=== PATIENT | female | born 1995 | race Two or more races ===

== ENCOUNTER 2021-07-23 12:40 | Emergency (ER) | payer OTHER ==
[~2021-07-23] VITALS: Ht 154.9 cm; Wt 71.2 kg
[2021-07-23] MEDS ORDERED: METFORMIN HCL1000 MG (14:33)
== END 2021-07-23 17:31 | disposition home or self-care (01) ==
LOC: ER 12:40 → EDBD 13:31 → ER 17:31
DX: B37.3 Candidiasis of vulva and vagina (principal); Z88.2 Allergy status to sulfonamides; N39.0 Urinary tract infection, site not specified

== ENCOUNTER 2022-01-20 13:29 | Emergency (ER) | payer OTHER ==
[~2022-01-20] VITALS: Ht 154.9 cm; Wt 75.3 kg
[~2022-01-20 13:29] MED LIST: METFORMIN HCL1000 MG
[2022-01-20] MEDS ORDERED: PANTOPRAZOLE SO40 MG PO (13:48)
[2022-01-20] MEDS ORDERED: MUPIROCIN22 GM TOP (15:48)
== END 2022-01-20 16:06 | disposition home or self-care (01) ==
LOC: ER 13:29
DX: S50.371A Other superficial bite of right elbow, initial encounter (principal); W54.0XXA Bitten by dog, initial encounter; Y93.9 Activity, unspecified; Y92.9 Unspecified place or not applicable; Z88.2 Allergy status to sulfonamides

== ENCOUNTER 2022-06-25 17:32 | Emergency (ER) | payer OTHER ==
[~2022-06-25] VITALS: Ht 157.5 cm; Wt 76.2 kg
[~2022-06-25 17:32] MED LIST changes: +MUPIROCIN22 GM TOP; +PANTOPRAZOLE SO40 MG PO
== END 2022-06-25 21:55 | disposition home or self-care (01) ==
LOC: ER 17:32
DX: H66.91 Otitis media, unspecified, right ear (principal); E10.9 Type 1 diabetes mellitus without complications; Z79.84 Long term (current) use of oral hypoglycemic drugs; E05.90 Thyrotoxicosis, unspecified without thyrotoxic crisis or storm; Z88.2 Allergy status to sulfonamides

== ENCOUNTER 2022-07-07 13:14 | Outpatient (CLI) | payer OTHER | END 2022-07-07 13:21 | disposition home or self-care (01) | LOC: SONOGRAMA 13:14 | PROVIDERS: ATTEND Obstetrics & Gynecology | DX: N64.4 Mastodynia (principal) ==